=== PATIENT | female | born 1965 | race American Indian/Alaskan Native ===

== ENCOUNTER 2017-03-16 00:33 | Emergency (ER) | payer MEDICAID ==
[2017-03-16 00:33] VITALS: BMI 29.9
--- NOTE | 2017-03-16 01:01 | C.PDOC ---
History Of Present Illness A 51 y/o F brought in by EMS for ETOH intoxication today. Pt is present with an unsteady gait. Denies trauma, suicidal or homicidal ideation, or any physical trauma. Time Seen by Provider: 03/16/17 00:58 Chief Complaint (Nursing): Substance Abuse History Per: Patient History/Exam Limitations: no limitations Onset/Duration Of Symptoms: Hrs Current Symptoms Are (Timing): Still Present Suicide/Self Injury Attempted (Context): None Modifying Factor(s): Alcohol Severity: Mild Associated Symptoms: denies: Suicidal Thoughts, Suicidal Plan Involuntary Hold By: None Recent travel outside of the [place]: No Additional History Per: Patient Past Medical History Reviewed: Historical Data, Nursing Documentation, Vital Signs Vital Signs: Last Vital Signs Temp 98.9 F 03/16/17 06:32 Pulse 90 03/16/17 06:32 Resp 20 03/16/17 06:32 BP 93/62 L 03/16/17 06:32 Pulse Ox 97 03/16/17 06:32 - Medical History PMH: Anxiety, Diabetes, HTN, Hypercholesterolemia Family History: States: Unknown Family Hx - Social History Hx Alcohol Use: Yes Hx Substance Use: No - Immunization History Hx Tetanus Toxoid Vaccination: No Hx Influenza Vaccination: No Hx Pneumococcal Vaccination: No Review Of Systems Except As Marked, All Systems Reviewed And Found Negative. Constitutional: Positive for: Other (ETOH intoxication. No trauma). Negative for: Fever, Chills Cardiovascular: Negative for: Chest Pain, Palpitations Respiratory: Negative for: Cough, Shortness of Breath Gastrointestinal: Negative for: Nausea, Vomiting, Abdominal Pain, Diarrhea Physical Exam - Physical Exam Appears: Non-toxic, No Acute Distress, Other (ETOH intoxicated. (+) AOB. NO signs of trauma) Skin: Warm, Dry Head: Atraumatic, Normacephalic Eye(s): bilateral: Normal Inspection Oral Mucosa: Moist Throat: Normal, No Exudate Chest: Symmetrical Cardiovascular: Rhythm Regular Respiratory: Normal Breath Sounds, No Accessory Muscle Use, No Rales, No Rhonchi , No Wheezing Gastrointestinal/Abdominal: Soft, No Tenderness Neurological/Psych: Other (No focal deficit. Awake and alert) Gait: Unsteady ED Course And Treatment O2 Sat by Pulse Oximetry: 98 (RA) Pulse Ox Interpretation: Normal Medical Decision Making Medical Decision Making: Impression: A 51 y/o F brought in by EMS for ETOH intoxication today. Plans: -ED obs -Reassess ED OBSERVATION Date of observation admission: 03/16/17 Time of observation admission: 01:16 - Observation admission statement Patient is being placed in observation because:: Acute ETOH intoxication - Goals of Observation Goals of observation are:: Sobriety Disposition Counseled Patient/Family Regarding: Diagnosis - Disposition Referrals: [facility] [Outside] Disposition: HOME/ ROUTINE Disposition Time: 06:38 Condition: STABLE Instructions: Abuse of Alcohol (ED) - POA Present On Arrival: None - Clinical Impression Clinical Impression: Alcohol abuse - Scribe Statement The provider has reviewed the documentation as recorded by the Scribe Patti cifuentes All medical record entries made by the Scribe were at my direction and personally dictated by me. I have reviewed the chart and agree that the record accurately reflects my personal performance of the history, physical exam, medical decision making, and the department course for this patient. I have also personally directed, reviewed, and agree with the discharge instructions and disposition.
[2017-03-16 06:33] VITALS: BP 93/62; PULSE 90; RESP 20; TEMP 98.9
[2017-03-16 06:39] VITALS: O2SAT 98
== END 2017-03-16 06:36 | disposition home or self-care (01) ==
LOC: C.ER 00:33
DX: F10.129 Alcohol abuse with intoxication, unspecified (principal); Y90.9 Presence of alcohol in blood, level not specified

== ENCOUNTER 2018-02-27 16:12 | Emergency (ER) | payer MEDICAID ==
[2018-02-27 16:18] VITALS: BP 118/79; PULSE 89; RESP 20; TEMP 98.8; O2SAT 95
== END 2018-02-27 17:45 | disposition left against medical advice (07) ==
LOC: C.ER 16:12
DX: Z02.89 Encounter for other administrative examinations (principal); R05 Cough

== ENCOUNTER 2018-08-19 13:19 | Emergency (ER) | payer MEDICAID ==
[2018-08-19 13:58] VITALS: BMI 26.6
[2018-08-19 14:02] VITALS: BP 155/100; PULSE 86; RESP 18; TEMP 98.1; O2SAT 98
--- NOTE | 2018-08-19 15:23 | C.PDOC ---
History Of Present Illness 53 year old female, whose PMHx includes chronic back and body pain, presents to the ED for evaluation of chronic pain. Patient sees Dr. King and Dr. Fran Hayes for her chronic pain medications, which include Percocet, dextroamphetamine, gabapentin, clonazepam and alprazolam. Patient claims she ran out of the medications and is asking for a refill. Patient has history of many prior visits for alcohol abuse, but states she is not drinking alcohol anymore. Patient denies fever, chills. Time Seen by Provider: 08/19/18 15:14 Chief Complaint (Nursing): Abdominal Pain History Per: Patient History/Exam Limitations: no limitations Onset/Duration Of Symptoms: Hrs Current Symptoms Are (Timing): Still Present Past Medical History Reviewed: Historical Data, Nursing Documentation, Vital Signs Vital Signs: Last Vital Signs Temp 98.1 F 08/19/18 13:58 Pulse 86 08/19/18 13:58 Resp 18 08/19/18 13:58 BP 155/100 H 08/19/18 13:58 Pulse Ox 98 08/19/18 13:58 - Medical History PMH: Anxiety, Diabetes, Diverticulitis, HTN, Hypercholesterolemia (Denies) Surgical History: No Surg Hx Family History: States: Unknown Family Hx - Social History Hx Alcohol Use: No Hx Substance Use: No - Immunization History Hx Tetanus Toxoid Vaccination: Yes Hx Influenza Vaccination: Yes Hx Pneumococcal Vaccination: Yes Review Of Systems Constitutional: Negative for: Fever, Chills Musculoskeletal: Positive for: Back Pain, Other (chronic body pain) Physical Exam - Physical Exam Appears: Non-toxic, No Acute Distress, Other (moving her legs, lower back and standing in no apparent distress ) Skin: Normal Color, Warm, Dry Head: Atraumatic, Normacephalic Eye(s): bilateral: Normal Inspection Oral Mucosa: Moist Neck: Supple Chest: Symmetrical, No Deformity, No Tenderness Cardiovascular: Rhythm Regular, No Murmur Respiratory: Normal Breath Sounds, No Rales, No Rhonchi, No Wheezing Extremity: Normal ROM Neurological/Psych: Oriented x3, Normal Speech, Normal Cognition ED Course And Treatment O2 Sat by Pulse Oximetry: 98 (on RA ) Pulse Ox Interpretation: Normal Progress Note: EKG ordered and reviewed. Medical Decision Making Medical Decision Making: chronic pains takes percocet daily NAD normal exam cannot give nor refill chronic narcs in ED referred back to PMD/chronic pain specialist. Disposition Doctor Will See Patient In The: Office Counseled Patient/Family Regarding: Studies Performed, Diagnosis - Disposition Referrals: Gabe King MD [Medical Doctor] - Disposition: HOME/ ROUTINE Disposition Time: 15:22 Condition: GOOD Additional Instructions: seek refills of controlle substances from your Chronic Pain specialists The ED may NOT be used to refill controlled meds for chronic use Remember, you have a contract w your Chronic Pain specialist to NOT seek meds/refills from any other sources Fran Hernandez [phone] Instructions: Chronic Pain (DC) Forms: [employer] (Macedonian) - Clinical Impression Clinical Impression: Chronic pain - Scribe Statement The provider has reviewed the documentation as recorded by the Scribe (Neema Oleary) Provider Attestation: All medical record entries made by the Scribe were at my direction and personally dictated by me. I have reviewed the chart and agree that the record accurately reflects my personal performance of the history, physical exam, medical decision making, and the department course for this patient. I have also personally directed, reviewed, and agree with the discharge instructions and disposition.
== END 2018-08-19 15:40 | disposition home or self-care (01) ==
LOC: C.ER 13:19
DX: G89.29 Other chronic pain (principal)

== ENCOUNTER 2018-09-20 22:38 | Emergency (ER) | payer MEDICAID ==
[2018-09-20 22:39] VITALS: BMI 26.6
[2018-09-20 22:55] VITALS: BP 136/96; PULSE 88; RESP 18; TEMP 98.9; O2SAT 97
[2018-09-20] MEDS ORDERED: Epinephrine /Lidocaine HCL 1:100,000/2% 30 ml INJ STA (23:44)
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
== END 2018-09-21 00:11 | disposition left against medical advice (07) ==
LOC: C.ER 22:38
DX: F10.10 Alcohol abuse, uncomplicated (principal); Y90.9 Presence of alcohol in blood, level not specified; S01.112A Laceration without foreign body of left eyelid and periocular area, initial encounter; Y09 Assault by unspecified means

== ENCOUNTER 2018-09-21 09:08 | Emergency (ER) | payer MEDICAID ==
[2018-09-21 09:08] VITALS: BMI 26.6
[2018-09-21] MEDS ORDERED: Lidocaine 1% Inj (20ml) INFIL ONE (09:54)
[2018-09-21] MEDS ORDERED: Tdap Vaccine 0.5 ml Vial (10-64 yrs) IM ONE ×2 (09:55→10:08)
[2018-09-21] MEDS ORDERED: Lidocaine Hydrochloride 10 ML INJ ONE (10:08)
--- NOTE | 2018-09-21 11:17 | CT ---
Date of service: 09/21/2018 PROCEDURE: CT HEAD WITHOUT CONTRAST. HISTORY: dizziness COMPARISON: None available. TECHNIQUE: Axial computed tomography images were obtained through the head/brain without intravenous contrast. Radiation dose: Total exam DLP = 940.92 mGy-cm. This CT exam was performed using one or more of the following dose reduction techniques: Automated exposure control, adjustment of the mA and/or kV according to patient size, and/or use of iterative reconstruction technique. FINDINGS: HEMORRHAGE: No intracranial hemorrhage. BRAIN: Stuart-white matter differentiation is preserved. There is no mass, mass effect or abnormal extra-axial fluid collection. There is no territorial infarction. The midline sagittal structures are normal. VENTRICLES: The ventricles are normal in size, shape and configuration. CALVARIUM: There is no calvarial fracture or extracranial soft tissue swelling. PARANASAL SINUSES: Predominantly clear. MASTOID AIR CELLS: Predominantly clear. OTHER FINDINGS: None. IMPRESSION: No acute intracranial abnormality. If there is a persistent focal neurologic deficit and an ongoing clinical concern for acute infarction, an MRI of the brain without intravenous contrast would be a more sensitive modality for evaluation of hyperacute/acute ischemic infarction.
[2018-09-21] MEDS ORDERED: Bacitracin 500 Units/gm Oint Foilpak UD TOP ONE (12:11)
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
[2018-09-21] MEDS ORDERED: Bacitracin 500 Units/gm Oint Foilpak UD ONE (12:28)
[2018-09-21 12:36] VITALS: BP 130/60; PULSE 76; RESP 18; TEMP 98.1
[2018-09-21 12:59] VITALS: O2SAT 97
== END 2018-09-21 12:35 | disposition home or self-care (01) ==
LOC: C.ER 09:08
DX: S01.111A Laceration without foreign body of right eyelid and periocular area, initial encounter (principal); Y09 Assault by unspecified means

== ENCOUNTER 2018-10-03 08:45 | Emergency (ER) | payer MEDICAID ==
[2018-10-03 08:45] VITALS: BMI 26.6
--- NOTE | 2018-10-03 09:32 | C.PDOC ---
History Of Present Illness 53 year old female presents to the ED for a wound check. Patient was seen in the ED on 09/21/18 and underwent suture repair to her left eyebrow. Patient states the area is well-healing and denies fever, chills, drainage or erythema. Patient is also complaining of right hand pain since same fall on 09/21/18. She denies extremity numbness/weakness. Time Seen by Provider: 10/03/18 09:16 Chief Complaint (Nursing): Wound Check History Per: Patient History/Exam Limitations: no limitations Onset/Duration Of Symptoms: Days Ago Current Symptoms Are (Timing): Still Present Quality Of Symptoms: denies: Swollen, Draining Additional History Per: Patient Past Medical History Reviewed: Historical Data, Nursing Documentation, Vital Signs Vital Signs: Last Vital Signs Temp 97.4 F L 10/03/18 08:52 Pulse 71 10/03/18 08:52 Resp 18 10/03/18 08:52 BP 126/80 10/03/18 08:52 Pulse Ox 97 10/03/18 08:52 - Medical History PMH: Anxiety, Diabetes, Diverticulitis, HTN, Hypercholesterolemia (Denies) Surgical History: No Surg Hx Family History: States: Unknown Family Hx - Social History Hx Alcohol Use: Yes Hx Substance Use: No - Immunization History Hx Tetanus Toxoid Vaccination: Yes Hx Influenza Vaccination: Yes Hx Pneumococcal Vaccination: Yes Review Of Systems Musculoskeletal: Positive for: Hand Pain (right) Skin: Positive for: Other (suture removal left eyebrow ) Physical Exam - Physical Exam Appears: Non-toxic, No Acute Distress Skin: Other (sutures intact. no erythema, drainage or signs of infection ) Head: Atraumatic, Normacephalic Eye(s): bilateral: Normal Inspection Oral Mucosa: Moist Neck: Supple Extremity: Normal ROM (fingers of right hand ), Tenderness (along lateral aspect of right hand ), Capillary Refill (less than 2 seconds ), Swelling (mild to right hand ), Other (no wrist or snuff box tenderness. skin intact ) Pulses: Left Radial: Normal, Right Radial: Normal Neurological/Psych: Oriented x3, Normal Speech, Normal Cognition, Normal Sensation ED Course And Treatment O2 Sat by Pulse Oximetry: 97 (on RA ) Pulse Ox Interpretation: Normal - Other Rad hand XR X-Ray: Viewed By Me, Read By Radiologist Interpretation: PROCEDURE: Right Hand Radiographs. HISTORY: injury. COMPARISON: None. FINDINGS: BONES: Minimally impacted fracture of the distal diametaphysis right 5th metacarpal bone is appreciated compatible with a boxer's fracture. No subluxation or dislocation throughout the right hand. No destructive bony lesions identified throughout. Local soft tissues reflect edema with remaining soft tissues are unremarkable. JOINTS: As above. SOFT TISSUES: As above. OTHER FINDINGS: None. IMPRESSION: Right 5th metacarpal boxer's fracture identified distally. Fracture is minimally impacted at the oblique plane of fracture. No dislocation associated. Local soft tissue edema noted. Medical Decision Making Medical Decision Making: Plan: * right hand XR * reassess and disposition Progress: All suture removed successfully, patient tolerated well. Right hand XR ordered and reviewed. Patient noted to have a boxer fracture. Patient informed of XR results. Patient eloped from the ED prior to splint application and discharge paperwork. Disposition Counseled Patient/Family Regarding: Studies Performed, Diagnosis - Disposition Disposition: ELOPEMENT - ER ONLY Disposition Time: 13:00 Condition: STABLE Forms: [facility] (South Sudanese) - Clinical Impression Clinical Impression: Visit for suture removal, Boxers fracture - Scribe Statement The provider has reviewed the documentation as recorded by the Scribe (Neema Oleary) Provider Attestation: All medical record entries made by the Scribe were at my direction and personally dictated by me. I have reviewed the chart and agree that the record accurately reflects my personal performance of the history, physical exam, medical decision making, and the department course for this patient. I have also personally directed, reviewed, and agree with the discharge instructions and disposition.
[2018-10-03 10:15] VITALS: BP 148/95; PULSE 70; RESP 16; TEMP 98
--- NOTE | 2018-10-03 11:18 | RAD ---
PROCEDURE: Right Hand Radiographs. HISTORY: injury COMPARISON: None. FINDINGS: BONES: Minimally impacted fracture of the distal diametaphysis right 5th metacarpal bone is appreciated compatible with a boxer's fracture. No subluxation or dislocation throughout the right hand. No destructive bony lesions identified throughout. Local soft tissues reflect edema with remaining soft tissues are unremarkable. JOINTS: As above. SOFT TISSUES: As above. OTHER FINDINGS: None. IMPRESSION: Right 5th metacarpal boxer's fracture identified distally. Fracture is minimally impacted at the oblique plane of fracture. No dislocation associated. Local soft tissue edema noted.
[2018-10-03 12:59] VITALS: O2SAT 97
== END 2018-10-03 10:55 | disposition left against medical advice (07) ==
LOC: C.ER 08:45
DX: Z48.02 Encounter for removal of sutures (principal); S62.306A Unspecified fracture of fifth metacarpal bone, right hand, initial encounter for closed fracture; W19.XXXA Unspecified fall, initial encounter